=== PATIENT | female | born 1970 | race Caucasian/White ===

== ENCOUNTER 2017-06-26 18:37 | Emergency (ER) | payer OTHER, BC ==
[2017-06-26 19:04] LABS: CHLORIDE,CL 106 mmol/L (98-107); SODIUM,NA 142 mmol/L (136-145)
[2017-06-26] MEDS ORDERED: Diphtheria/Tetanus Toxoids,Adult (Td) 0.5 ML Syringe IM ONE (20:24)
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
== END 2017-06-26 20:48 ==
LOC: LL.ED 18:37
DX: S01.111A Laceration without foreign body of right eyelid and periocular area, initial encounter (principal); Z23 Encounter for immunization; V98.8XXA Other specified transport accidents, initial encounter
CPT/HCPCS: 12011; 36415; 70450; 71020; 73030; 80048; 80305; 81001; 85025; 90471; 90714; 99284; G0480

== ENCOUNTER 2019-01-24 18:48 | Emergency (ER) | payer BC ==
[2019-01-24] MEDS ORDERED: diphenhydrAMINE 50 MG/ML SDV IVPUSH ONE (19:48)
[2019-01-24] MEDS ORDERED: Sodium Chloride 0.9% 10 ML Syringe FLUSH PRN (19:48)
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
[2019-01-24] MEDS ORDERED: LORazepam 2 MG/ML SDV IVPUSH ONE (19:49)
[2019-01-24] MEDS ORDERED: Metoclopramide 10 MG/2 ML SDV IVPUSH ONE (19:49)
[2019-01-24] MEDS ORDERED: Ketorolac 30 MG/ML SDV IVPUSH ONE (19:54)
[2019-01-24 21:09] VITALS: BP 158/101
== END 2019-01-24 22:45 | disposition home or self-care (01) ==
LOC: LL.ED 18:48
DX: G43.109 Migraine with aura, not intractable, without status migrainosus (principal); F41.8 Other specified anxiety disorders; K21.9 Gastro-esophageal reflux disease without esophagitis; Z71.6 Tobacco abuse counseling; M15.0 Primary generalized (osteo)arthritis; J45.21 Mild intermittent asthma with (acute) exacerbation; I10 Essential (primary) hypertension; F17.210 Nicotine dependence, cigarettes, uncomplicated; Z88.8 Allergy status to other drugs, medicaments and biological substances; Z88.2 Allergy status to sulfonamides; Z79.899 Other long term (current) drug therapy
CPT/HCPCS: 96374; 96375; 99283-25; J1200; J1885; J2060; J2765

== ENCOUNTER 2019-03-02 10:00 | Emergency (ER) | payer BC, OTHER ==
[2019-03-02] MEDS ORDERED: Ketorolac 30 MG/ML SDV IVPUSH ONE (10:25)
--- NOTE | 2019-03-02 10:25 | EDM.PDOC ---
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 Chloride 0.9% [Saline Flush] 10 ml FLUSH ASDIRECTED PRN Peripheral IV Insertion Adult [OM.PC] Routine 03/02/19 10:27 Obtain Past Medical Record [OM.PC] Routine Assessment:: As above Plan: As above. Extensive precautions were given to the patient, who is in agreement with the treatment plan. See Patient Instructions for further treatment and plan. [employer] employee will drive the patient home.
[2019-03-02] MEDS ORDERED: LORazepam 2 MG/ML SDV IVPUSH ONE (10:26)
[2019-03-02] MEDS ORDERED: diphenhydrAMINE 50 MG/ML SDV IVPUSH ONE (10:26)
[2019-03-02] MEDS ORDERED: Metoclopramide 10 MG/2 ML SDV IVPUSH ONE (10:27)
[2019-03-02] MEDS: Sodium Chloride 0.9% 10 ML Syringe FLUSH PRN ×2 (10:38→10:42)
[2019-03-02 11:08] VITALS: BP 120/78
== END 2019-03-02 11:25 | disposition home or self-care (01) ==
LOC: LL.ED 10:00
DX: S00.03XA Contusion of scalp, initial encounter (principal); G43.109 Migraine with aura, not intractable, without status migrainosus; I10 Essential (primary) hypertension; M15.0 Primary generalized (osteo)arthritis; J45.21 Mild intermittent asthma with (acute) exacerbation; F17.210 Nicotine dependence, cigarettes, uncomplicated; E11.9 Type 2 diabetes mellitus without complications; Z79.899 Other long term (current) drug therapy; Z88.1 Allergy status to other antibiotic agents; Z88.2 Allergy status to sulfonamides; Z88.6 Allergy status to analgesic agent; W22.8XXA Striking against or struck by other objects, initial encounter; Y99.0 Civilian activity done for income or pay
CPT/HCPCS: 96374; 96375; 99283-25; J1200; J1885; J2060; J2765

== ENCOUNTER → 2019-04-27 | Day surgery (SDC) | payer BC, OTHER ==
[~2019-04-27] MED LIST: Lactated Ringers 1,000 ML IV SCH; Propofol 200 MG/20 ML SDV ONE; Sodium Chloride 0.9% 10 ML Syringe FLUSH PRN
--- NOTE | 2019-04-27 10:13 | PCM.PN ---
- General Info Date of Service: 04/27/19 - Review of Systems Systems Review Comment:: 49-year-old female with history of Bruno's esophagus here for surveillance EGD. She takes multiple medications to control her acid reflux symptoms. She has noticed increased symptoms in the last few weeks. She also has a rare episode of dysphasia. Her recent history and physical is reviewed and no significant changes are noted. I have discussed the proposed upper endoscopy with the patient. She agrees to proceed accepting risks. - Patient Data Vitals - Most Recent: Last Vital Signs Temp 98.2 F 04/27/19 08:15 Pulse 70 04/27/19 08:15 Resp 18 04/27/19 08:15 BP Pulse Ox 97 04/27/19 08:15 Weight - Most Recent: 81.647 kg Lab Results Last 24 Hours: Laboratory Results - last 24 hr 04/27/19 Range/Units 08:30 HCG, Qual Negative (NEGATIVE) Med Orders - Current: Current Medications Lactated Ringer's (Ringers, Lactated) 1,000 mls @ 125 mls/hr IV ASDIRECTED JESSICA Last Admin: 04/27/19 08:22 Dose: 125 mls/hr Sodium Chloride (Saline Flush) 10 ml FLUSH ASDIRECTED PRN PRN Reason: Keep Vein Open - Problem List Review Problem List Initiated/Reviewed/Updated: Yes - My Orders Last 24 Hours: My Active Orders 04/27/19 08:30 Patient Status [ADT] Routine Peripheral IV Care [RC] . DIRECTED Verify Patient Consent Obtain [RC] ASDIRECTED Lactated Ringers [Ringers, Lactated] 1,000 ml IV ASDIRECTED Sodium Chloride 0.9% [Saline Flush] 10 ml FLUSH ASDIRECTED PRN Peripheral IV Insertion Adult [OM.PC] Routine - Assessment Assessment:: Bruno's esophagus - Plan Plan:: EGD
--- NOTE | 2019-04-27 11:18 | PCM.OPNOTE ---
- General Post-Op/Procedure Note Date of Surgery/Procedure: 04/27/19 Operative Procedure(s): EGD with biopsy and balloon dilation of esophageal stricture Findings: small hiatal hernia Short segment Bruno's esophagus Reflux esophagitis proximal to Bruno's esophagus Moderate distal esophageal stricture Pre Op Diagnosis: history of Bruno's esophagus. Dysphasia Post-Op Diagnosis: hiatal hernia. Bruno's esophagus. Reflux esophagitis. Esophageal stricture Anesthesia Technique: MAC Primary Surgeon: Earnest Espana Pathology: biopsies of gastric antrum Biopsies of distal esophagus EBL in mLs: 3 Complications: None Condition: Good
[2019-04-27 12:15] VITALS: BP 118/82
--- NOTE | 2019-04-27 14:12 | OR ---
Date of Procedure: 04/27/2019 PREOPERATIVE DIAGNOSIS: History of Bruno's esophagus and dysphagia. POSTOPERATIVE DIAGNOSES: 1. Hiatal hernia. 2. Bruno's esophagus. 3. Reflux esophagitis. 4. Distal esophageal stricture. OPERATION PERFORMED: Esophagogastroduodenoscopy with biopsy and balloon dilation of esophageal stricture. INDICATIONS FOR SURGERY: This 49-year-old female has a known history of Bruno's esophagus. She has noticed some increased reflux symptoms recently and also is having some symptoms of dysphagia. She is here for surveillance upper endoscopy because of her Bruno's esophagus. FINDINGS: The patient does have a small hiatal hernia and visible evidence of Bruno's esophagus for a distance of approximately 2 cm near the GE junction. Just above this area, the patient has a moderate esophageal stricture, and also in the distal esophageal mucosa, there is some hyperemia and even a small amount of exudate consistent with reflux esophagitis. The upper stomach and oropharynx appears normal without visible signs of inflammation or hyperemia. The remainder of the stomach and the proximal duodenum also appeared normal. DESCRIPTION OF PROCEDURE: The patient was taken to the operating room. She was given intravenous sedation, and her throat was topically anesthetized. The esophagus was intubated with the Olympus gastroscope. This was carefully advanced under direct visualization down through the esophagus and the scope did pass through the stricture initially. The scope was advanced down through the stomach and into the duodenum, where examination to the third portion was performed. After examining the duodenum, the scope was withdrawn back into the stomach and random biopsies of the antrum were taken to rule out H. pylori because of the patient's increased recent reflux symptoms. Full examination of the stomach including retroflexed examination of the fundus was performed. The GE junction was carefully examined. The biopsies were taken in the area of the Bruno's esophagus to be sure no dysplasia was developing. Also, biopsies were taken in the distal esophagus above the known area of Bruno's esophagus, but in the area where visible signs of inflammation were seen today. With the patient's symptoms of dysphagia and the visualized stricture, it was decided to also perform a balloon dilation of the stricture in order to help the patient's symptoms and this was carried out today using a [id number] balloon dilator, and using this, the stricture was dilated up to 54 [place]. This was tolerated well by the patient and postprocedure inspection showed no evidence of any complication. The esophagus was then re-examined as the scope was removed and the patient was then taken from the operating room in satisfactory condition. ESTIMATED BLOOD LOSS: 4 mL. COMPLICATIONS: None. PROGNOSIS: Good. BYRON Espana MD /[id number]
== END | disposition home or self-care (01) ==
LOC: LL.SDS 07:26
PROVIDERS: ATTEND Surgery
DX: K22.70 Barrett's esophagus without dysplasia (principal); K21.0 Gastro-esophageal reflux disease with esophagitis; K29.50 Unspecified chronic gastritis without bleeding; K22.2 Esophageal obstruction; K44.9 Diaphragmatic hernia without obstruction or gangrene; K31.89 Other diseases of stomach and duodenum; I10 Essential (primary) hypertension; E78.5 Hyperlipidemia, unspecified; E55.9 Vitamin D deficiency, unspecified; F17.210 Nicotine dependence, cigarettes, uncomplicated; F41.9 Anxiety disorder, unspecified; R51 Headache; E66.01 Morbid (severe) obesity due to excess calories; Z68.36 Body mass index [BMI] 36.0-36.9, adult; Z88.6 Allergy status to analgesic agent; Z79.899 Other long term (current) drug therapy
CPT/HCPCS: 36415; 84703; J2704; J7120

== ENCOUNTER 2021-08-25 09:30 | Day surgery (SDC) | payer BC ==
[~2021-08-25 09:30] MED LIST changes: +Midazolam 1 MG/ML 2 ML SDV ONE
--- NOTE | 2021-08-25 10:00 | PCM.PN ---
- General Info Date of Service: 08/25/21 - Review of Systems Systems Review Comment:: 51 y/o female with history of Bruno's esophagus here for EGD. She notes recent increase in reflux symptoms and pressure sensation in chest. This is despite taking PPI BID. She is medically stable to proceed. The proposed EGD is discussed with the patient and she agrees to proceed. Her recent H and P is reviewed and no significant changes are noted. - Patient Data Weight - Most Recent: 83.915 kg Med Orders - Current: Current Medications Lactated Ringer's (Ringers, Lactated) 1,000 mls @ 125 mls/hr IV ASDIRECTED JESSICA Last Admin: 08/25/21 09:54 Dose: 125 mls/hr Documented by: Sodium Chloride (Sodium Chloride 0.9% 10 Ml Syringe) 10 ml FLUSH ASDIRECTED PRN PRN Reason: Keep Vein Open Discontinued Medications Midazolam HCl (Midazolam 1 Mg/Ml 2 Ml Sdv) Confirm Administered Dose 2 mg .ROUTE .STK-MED ONE Stop: 08/25/21 07:40 Propofol (Propofol 200 Mg/20 Ml Sdv) Confirm Administered Dose 200 mg .ROUTE .STK-MED ONE Stop: 08/25/21 07:40 - Problem List Review Problem List Initiated/Reviewed/Updated: Yes - My Orders Last 24 Hours: My Active Orders 08/25/21 09:30 Patient Status [ADT] Routine Peripheral IV Care [RC] . DIRECTED Verify Patient Consent Obtain [RC] ASDIRECTED Lactated Ringers [Ringers, Lactated] 1,000 ml IV ASDIRECTED Sodium Chloride 0.9% [Saline Flush] 10 ml FLUSH ASDIRECTED PRN Peripheral IV Insertion Adult [OM.PC] Routine - Assessment Assessment:: History of Bruno's Esophagus - Plan Plan:: EGD
[2021-08-25] MEDS ORDERED: Midazolam 1 MG/ML 2 ML SDV ONE (10:09)
[2021-08-25] MEDS ORDERED: Propofol 200 MG/20 ML SDV ONE (10:09)
[2021-08-25] MEDS ORDERED: Lidocaine 2% 100 MG/5 ML Syringe ONE (10:09)
[2021-08-25] MEDS ORDERED: Glycopyrrolate 0.2 MG/ML SDV ONE (10:09)
--- NOTE | 2021-08-25 10:41 | PCM.OPNOTE ---
- General Post-Op/Procedure Note Date of Surgery/Procedure: 08/25/21 Operative Procedure(s): EGD with Biopsy Findings: Distal esophageal changes suggestive of Bruno's Esophagus with without nodularity or mass Pre Op Diagnosis: History of Bruno's esophagus Post-Op Diagnosis: Bruno's esophagus Anesthesia Technique: MAC Primary Surgeon: Earnest Espana Pathology: Biopsies of gastric antrum and distal esophagus EBL in mLs: 3 Complications: None Condition: Good
[2021-08-25 13:29] VITALS: BP 127/88; PULSE 80
--- NOTE | 2021-08-25 16:38 | HP ---
HISTORY OF PRESENT ILLNESS: A 51-year-old female comes today for EGD. She has a history of Bruno's esophagus. Biopsies taken during previous endoscopies showed no dysplasia. She also has a history of an esophageal stricture. The patient has been noticing worsening of her reflux symptoms, especially at night over the last 6 months. PAST SURGICAL HISTORY: Other previous surgeries include a section and cholecystectomy. MEDICATIONS: Her medications are reviewed. No changes were noted. She is currently taking Protonix b.i.d. for her reflux. Also has taken Carafate in the past. ALLERGIES: She is allergic to aspirin, Celebrex, and sulfa. FAMILY HISTORY: Unchanged from recent evaluation. SOCIAL HISTORY: Does include the patient being a current smoker. PHYSICAL EXAMINATION: GENERAL: The patient is an alert, adult female. She is in no acute distress. HEENT: Head is normocephalic. No scleral icterus. HEART: Regular. LUNGS: Clear. ABDOMEN: Soft and nontender. IMPRESSION: History of Bruno's esophagus with worsening gastroesophageal reflux disease symptoms. PLAN: EGD. INFORMED CONSENT: I have discussed the proposed EGD with the patient. She agrees to proceed accepting the risks. BYRON Espana MD /[id number]
--- NOTE | 2021-08-25 16:51 | OR ---
Date of Procedure: 08/25/2021 PREOPERATIVE DIAGNOSIS: History of Bruno's esophagus. POSTOPERATIVE DIAGNOSIS: Bruno's esophagus. OPERATION PERFORMED: Esophagogastroduodenoscopy with biopsy. INDICATIONS FOR SURGERY: This 51-year-old female has a known history of Bruno's esophagus. She does have reflux symptoms, even though she takes PPI agent b.i.d. Previous biopsies of the Bruno's esophagus have not shown any dysplasia. She comes for EGD today. FINDINGS: The patient's distal esophagus does show areas of chronic inflammation and findings consistent with short-segment Bruno's esophagus. These extend from approximately the 30 cm level to the 27 cm level. The remainder of the esophagus including the upper portion of the esophagus appeared normal with no visible narrowing or signs of inflammation. The patient's stomach otherwise appears normal with no ulcers or other inflammation. DESCRIPTION OF PROCEDURE: The patient was taken to the procedure room. She was given intravenous sedation and with her in the left lateral decubitus position, the Olympus gastroscope was advanced through a mouth guard into the oral cavity under direct visualization. The scope was advanced through the oropharynx into the esophagus and then the scope was advanced through the esophagus, stomach, and out into the duodenum, where examination to the fourth portion was performed. After examining the duodenum, the scope was withdrawn back into the stomach where full examination including retroflexed examination of the fundus was performed. Random biopsies of the antrum were taken to rule out H. pylori. The GE junction and distal esophagus were then carefully examined and biopsies were taken here at multiple levels to follow up on her Bruno's esophagus. The exam was completed with no sign of complication. The scope was removed. The patient was then taken from the operating room in satisfactory condition. ESTIMATED BLOOD LOSS: 3 mL. COMPLICATIONS: None. PROGNOSIS: Good. BYRON Espana MD /[id number]
== END 2021-08-25 11:47 | disposition home or self-care (01) ==
LOC: LL.SDS 09:30
PROVIDERS: ATTEND Surgery
DX: K22.70 Barrett's esophagus without dysplasia (principal); K29.50 Unspecified chronic gastritis without bleeding; K22.10 Ulcer of esophagus without bleeding; K21.00 Gastro-esophageal reflux disease with esophagitis, without bleeding; J44.9 Chronic obstructive pulmonary disease, unspecified; Z88.8 Allergy status to other drugs, medicaments and biological substances; Z88.2 Allergy status to sulfonamides
CPT/HCPCS: J2250; J2704; J3490; J7120

== ENCOUNTER 2022-06-13 18:17 | Emergency (ER) | payer BC, OTHER ==
[2022-06-13] MEDS ORDERED: Sodium Chloride 0.9% 10 ML Syringe FLUSH PRN (18:31)
[2022-06-13 19:15] LABS: ANION GAP 9.1 meq/L (7-15); CHLORIDE,CL 104 mmol/L (98-107); SODIUM,NA 141 mmol/L (136-145)
[2022-06-13 19:16] LABS: ESTIMATED GFR 67 mL/min (>=60)
== END 2022-06-13 19:23 | disposition home or self-care (01) ==
LOC: LL.ED 18:17
DX: B02.9 Zoster without complications (principal); E78.00 Pure hypercholesterolemia, unspecified; I10 Essential (primary) hypertension; F17.210 Nicotine dependence, cigarettes, uncomplicated; E66.9 Obesity, unspecified; Z68.30 Body mass index [BMI] 30.0-30.9, adult; Z88.2 Allergy status to sulfonamides; Z88.8 Allergy status to other drugs, medicaments and biological substances; Z88.5 Allergy status to narcotic agent; Z79.899 Other long term (current) drug therapy
CPT/HCPCS: 36415; 80053; 85025; 86140; 87798; 99283

== ENCOUNTER 2022-10-15 10:02 | Day surgery (SDC) | payer OTHER ==
[~2022-10-15 10:02] MED LIST changes: -Lactated Ringers 1,000 ML IV SCH; -Sodium Chloride 0.9% 10 ML Syringe FLUSH PRN
[2022-10-15] MEDS ORDERED: Lactated Ringers 1,000 ML IV SCH (10:15)
[2022-10-15] MEDS ORDERED: Sodium Chloride 0.9% 10 ML Syringe FLUSH PRN (10:15)
[2022-10-15] MEDS ORDERED: Midazolam 1 MG/ML 2 ML SDV ONE (11:09)
[2022-10-15 15:27] VITALS: BP 128/95; PULSE 96
== END 2022-10-15 12:30 | disposition home or self-care (01) ==
LOC: LL.SDS 10:02
PROVIDERS: ATTEND Surgery
DX: Z12.11 Encounter for screening for malignant neoplasm of colon (principal); K21.00 Gastro-esophageal reflux disease with esophagitis, without bleeding; K44.9 Diaphragmatic hernia without obstruction or gangrene; I10 Essential (primary) hypertension; E78.00 Pure hypercholesterolemia, unspecified; J44.9 Chronic obstructive pulmonary disease, unspecified; G47.30 Sleep apnea, unspecified; F41.9 Anxiety disorder, unspecified; G43.909 Migraine, unspecified, not intractable, without status migrainosus; E66.9 Obesity, unspecified; E55.9 Vitamin D deficiency, unspecified; D50.9 Iron deficiency anemia, unspecified; F17.210 Nicotine dependence, cigarettes, uncomplicated; Z88.2 Allergy status to sulfonamides; Z88.6 Allergy status to analgesic agent; Z88.5 Allergy status to narcotic agent; Z79.899 Other long term (current) drug therapy; Z90.49 Acquired absence of other specified parts of digestive tract; Z98.890 Other specified postprocedural states
CPT/HCPCS: J2250; J2704; J7120

== ENCOUNTER 2023-07-26 07:20 | Emergency (ER) | payer OTHER ==
[2023-07-26 07:27] VITALS: BP 136/92; PULSE 71
[2023-07-26] MEDS ORDERED: Ketorolac 30 MG/ML SDV IM ONE (08:16)
== END 2023-07-26 08:35 | disposition home or self-care (01) ==
LOC: LL.ED 07:20
DX: R07.81 Pleurodynia (principal); I10 Essential (primary) hypertension; J45.909 Unspecified asthma, uncomplicated; E66.9 Obesity, unspecified; Z68.29 Body mass index [BMI] 29.0-29.9, adult; Z86.16 Personal history of COVID-19; Z88.5 Allergy status to narcotic agent; Z88.6 Allergy status to analgesic agent; Z88.2 Allergy status to sulfonamides; Z88.8 Allergy status to other drugs, medicaments and biological substances
CPT/HCPCS: 96372; 99283; J1885

== ENCOUNTER 2023-12-04 10:15 | Emergency (ER) | payer OTHER ==
[2023-12-04] MEDS ORDERED: Sodium Chloride 0.9% 1,000 ML IV ONE ×2 (10:29→11:45)
[2023-12-04 10:50] LABS: BASOPHILS ABSOLUTE AUTO 0.04 K/uL (0.00-0.20); BASOPHILS PERCENT AUTO 0.6 % (0.0-2.0); EOSINOPHILS ABSOLUTE AUTO 0.12 K/uL (0.00-0.50); EOSINOPHILS PERCENT AUTO 1.7 % (0.0-5.0); HEMATOCRIT 42.7 % (34.0-46.0); HEMOGLOBIN 13.7 g/dL (11.7-15.5); LYMPHOCYTES PERCENT AUTO 26.2 % (10.0-50.0); MEAN CORPUSCULAR HGB CONC 32.1 g/dL (31.7-36.0); MEAN CORPUSCULAR VOLUME 84.2 fL (84.0-98.0); MONOCYTES ABSOLUTE AUTO 0.52 K/uL (0.00-1.00); MONOCYTES PERCENT AUTO 7.2 % (2.0-14.0); NEUTROPHILS ABSOLUTE AUTO 4.68 K/uL (1.40-7.00); NEUTROPHILS PERCENT AUTO 64.3 % (45.0-80.0); PLATELET COUNT,PLT 284 K/uL (150-350); RED BLOOD CELL COUNT 5.07 M/uL (3.77-5.09); RED CELL DISTRIBUTION WIDTH 13.3 % (11.2-14.1); WHITE BLOOD CELL COUNT,WBC 7.3 K/uL (4.0-10.2)
[2023-12-04 11:07] LABS: ALANINE AMINOTRANSFERASE,ALT 38 U/L (12-78); ALBUMIN 3.8 g/dL (3.4-5.0); ALKALINE PHOSPHATASE 97 IU/L (46-116); ASPARTATE AMNIOTRANSFERASE,AST 20 U/L (15-37); BILIRUBIN TOTAL 0.3 mg/dL (0.2-1.0); BLOOD UREA NITROGEN,BUN 20 mg/dL (7-18); CALCIUM 9.7 mg/dL (8.5-10.1); CARBON DIOXIDE,CO2 24.2 mmol/L (21.0-32.0); CHLORIDE,CL 104 mmol/L (98-107); CREATININE 0.86 mg/dL (0.51-1.17); GLUCOSE RANDOM 108 mg/dL (70-99); MAGNESIUM 1.6 mg/dL (1.8-2.4); POTASSIUM,K 3.3 mmol/L (3.5-5.1); PROTEIN TOTAL,TP 7.4 g/dL (6.4-8.2); SODIUM,NA 140 mmol/L (136-145)
[2023-12-04 11:09] LABS: ANION GAP 15.1 meq/L (7-15); ESTIMATED GFR 81 mL/min (>=60)
[2023-12-04 11:26] LABS: CORONAVIRUS COVID-19 NAA NEGATIVE (NEGATIVE); INFLUENZA A NAA NEGATIVE (NEGATIVE); INFLUENZA B NAA NEGATIVE (NEGATIVE); RESPIRATORY SYNCYTIAL VIR NAA NEGATIVE (NEGATIVE)
[2023-12-04] MEDS ORDERED: Potassium Bicarbonate/Cit Ac 20 MEQ Effervescent Tab PO ONE (13:15)
[2023-12-04 14:32] VITALS: BP 137/83; PULSE 78
== END 2023-12-04 13:49 | disposition home or self-care (01) ==
LOC: LL.ED 10:15
DX: B34.9 Viral infection, unspecified (principal); E86.0 Dehydration; E83.42 Hypomagnesemia; I10 Essential (primary) hypertension; Z88.2 Allergy status to sulfonamides; Z88.5 Allergy status to narcotic agent; Z88.6 Allergy status to analgesic agent
CPT/HCPCS: 0241U; 36415; 80053; 83605; 83735; 84484; 85025; 93005; 96361; 96365; 99285-25; A9270-GY; J3475; J7030

== ENCOUNTER 2024-11-30 10:21 | Day surgery (SDC) | payer OTHER, BC ==
[2024-11-30] MEDS ORDERED: Sodium Chloride 0.9% 10 ML Syringe FLUSH PRN (10:30)
[2024-11-30] MEDS: Lactated Ringers 1,000 ML IV SCH (11:03)
[2024-11-30] MEDS ORDERED: Glycopyrrolate 0.2 MG/ML SDV IVPUSH ONE (11:10)
[2024-11-30 15:16] VITALS: BP 146/94; PULSE 100
== END 2024-11-30 13:20 ==
LOC: LL.SDS 10:21
PROVIDERS: ATTEND Surgery
DX: K22.70 Barrett's esophagus without dysplasia (principal); K21.00 Gastro-esophageal reflux disease with esophagitis, without bleeding; E78.5 Hyperlipidemia, unspecified; Z98.84 Bariatric surgery status; Z79.899 Other long term (current) drug therapy; Z88.5 Allergy status to narcotic agent; Z88.2 Allergy status to sulfonamides; Z88.1 Allergy status to other antibiotic agents
CPT/HCPCS: 00731; J1596; J2250; J2704; J7120

== ENCOUNTER 2025-04-29 06:17 | Emergency (ER) | payer OTHER, BC ==
[2025-04-29 07:11] LABS: BASOPHILS ABSOLUTE AUTO 0.05 K/uL (0.00-0.20); BASOPHILS PERCENT AUTO 0.7 % (0.0-2.0); EOSINOPHILS ABSOLUTE AUTO 0.27 K/uL (0.00-0.50); EOSINOPHILS PERCENT AUTO 3.7 % (0.0-5.0); HEMATOCRIT 42.9 % (34.0-46.0); HEMOGLOBIN 13.8 g/dL (11.7-15.5); IMMATURE GRAN ABSOLUTE AUTO 0.01 10^3/uL (0.00-0.04); IMMATURE GRAN PERCENT AUTO 0.1 % (0.0-0.4); LYMPHOCYTES ABSOLUTE AUTO 2.01 K/uL (0.50-3.50); LYMPHOCYTES PERCENT AUTO 27.8 % (10.0-50.0); MEAN CORPUSCULAR HEMOGLOBIN 27.2 pg (28.2-33.3); MEAN CORPUSCULAR HGB CONC 32.2 g/dL (31.7-36.0); MEAN CORPUSCULAR VOLUME 84.6 fL (84.0-98.0); MONOCYTES ABSOLUTE AUTO 0.48 K/uL (0.00-1.00); MONOCYTES PERCENT AUTO 6.6 % (2.0-14.0); NEUTROPHILS ABSOLUTE AUTO 4.42 K/uL (1.40-7.00); NEUTROPHILS PERCENT AUTO 61.1 % (45.0-80.0); PLATELET COUNT,PLT 309 K/uL (150-350); RED BLOOD CELL COUNT 5.07 M/uL (3.77-5.09); RED CELL DISTRIBUTION WIDTH 13.6 % (11.2-14.1); WHITE BLOOD CELL COUNT,WBC 7.2 K/uL (4.0-10.2)
[2025-04-29] MEDS: Sodium Chloride 0.9% 1,000 ML IV ONE (07:12)
[2025-04-29] MEDS: Sodium Chloride 0.9% 10 ML Syringe FLUSH PRN (07:13)
[2025-04-29] MEDS: Ondansetron 4 MG/2 ML SDV IVPUSH ONE (07:13)
[2025-04-29] MEDS: Ketorolac 15 MG/ML SDV IVPUSH ONE (07:13)
[2025-04-29] MEDS: diphenhydrAMINE 50 MG/ML SDV IVPUSH ONE (07:13)
[2025-04-29] MEDS: diazePAM 5 MG Tab PO ONE (07:14)
[2025-04-29 08:08] LABS: CALCIUM IONIZED,POC 1.21 mmol/L (1.12-1.32); CREATININE,POC 0.56 mg/dL (0.51-1.19); POTASSIUM,POC 4.1 mmol/L (3.5-4.5)
[2025-04-29 08:43] VITALS: BP 138/88; PULSE 77
== END 2025-04-29 08:34 | disposition home or self-care (01) ==
LOC: SUPCPDRO 06:17 → LL.ED 06:17
DX: G43.009 Migraine without aura, not intractable, without status migrainosus (principal); I10 Essential (primary) hypertension; E78.00 Pure hypercholesterolemia, unspecified; J45.909 Unspecified asthma, uncomplicated; K21.9 Gastro-esophageal reflux disease without esophagitis; Z86.16 Personal history of COVID-19; Z88.5 Allergy status to narcotic agent; Z88.1 Allergy status to other antibiotic agents; Z88.6 Allergy status to analgesic agent; Z79.899 Other long term (current) drug therapy
CPT/HCPCS: 36415; 80047; 83735; 85025; 96374; 96375; 99283; 99283-25; A9270-GY; J1200; J1885; J2405; J7030